=== PATIENT | female | born 1980 | race Caucasian/White ===

== ENCOUNTER 2025-07-24 12:10 | Emergency (ER) | payer MEDICAID | END 2025-07-24 13:26 | disposition home or self-care (01) | LOC: VM.ED 12:10 | DX: K04.7 Periapical abscess without sinus (principal); L30.9 Dermatitis, unspecified; I10 Essential (primary) hypertension; F17.200 Nicotine dependence, unspecified, uncomplicated; Z88.1 Allergy status to other antibiotic agents | CPT/HCPCS: 10060; 41800; 99283 ==